=== PATIENT | male | born 1980 | race Caucasian/White ===

== ENCOUNTER 2016-08-19 09:02 | Emergency (ER) | payer OTHER ==
[2016-08-19 09:13] VITALS: TEMP 97.7
[2016-08-19] MEDS ORDERED: IBUPROFEN 600 MG TAB PO STA (09:31)
--- NOTE | 2016-08-19 09:36 | ED ---
General Adult HPI - General Chief complaint: Chest Pain Stated complaint: RT SIDE RIB PAIN Time Seen by Provider: 08/19/16 09:26 Source: patient, RN notes reviewed Mode of arrival: ambulatory Limitations: no limitations - History of Present Illness Initial comments: Patient 36-year-old male who presents emergency room today with a chief complaint of injury to the right anterior ribs. He does admit that 4 days ago he was playing softball. He states he was running to make a catch and he hit his anterior chest wall on a fence post. Patient states that he had some pain some discomfort locally to this area. He states that yesterday he was running a race called "[employer]". He states there are multiple popsicles. He states that by the end of his race he was really feeling the pain of the right anterior chest. He states very tender with certain movements and on palpation. He states he is worried about possible broken rib. He denies any other complaints or associated symptoms currently. States he is not taking any pain medication for this. Patient denies any recent fever, chills, shortness of breath, chest pain, back pain, abdominal pain, nausea or vomiting, numbness or tingling, dysuria or hematuria, constipation or diarrhea, headaches or visual changes, or any other complaints. - Related Data Previous Rx's Medication Instructions Recorded Ibuprofen [Motrin] 600 mg PO Q6HR PRN #30 day 08/19/16 Allergies Allergy/AdvReac Type Severity Reaction Status Date / Time No Known Allergies Allergy Verified 08/19/16 09:13 Review of Systems ROS Statement: Those systems with pertinent positive or pertinent negative responses have been documented in the HPI. ROS Other: All systems not noted in ROS Statement are negative. Past Medical History Past Medical History: No Reported History History of Any Multi-Drug Resistant Organisms: None Reported Past Surgical History: No Surgical Hx Reported Additional Past Surgical History / Comment(s): orchectomy Past Psychological History: No Psychological Hx Reported Smoking Status: Never smoker Past Alcohol Use History: None Reported Past Drug Use History: None Reported General Exam - General Exam Comments Initial Comments: General: The patient is awake and alert, in no distress, and does not appear acutely ill. Eye: Pupils are equal, round and reactive to light, extra-ocular movements are intact. No nystagmus. There is normal conjunctiva bilaterally. No signs of icterus. Ears, nose, mouth and throat: There are moist mucous membranes and no oral lesions. Neck: The neck is supple, there is no tenderness or JVD. Cardiovascular: There is a regular rate and rhythm. No murmur, rub or gallop is appreciated. Respiratory: Lungs are clear to auscultation, respirations are non-labored, breath sounds are equal. No wheezes, stridor, rales, or rhonchi. Musculoskeletal: Normal ROM. Patient has normal appearance of the chest wall with no obvious deformity. No bruising or swelling. He is tender to palpation from ribs 3-5. Strength 5/5. Sensation intact. Pulses equal bilaterally 2+. Neurological: A&O x 3. CN II-XII intact, There are no obvious motor or sensory deficits. Coordination appears grossly intact. Speech is normal. Skin: Skin is warm and dry and no rashes or lesions are noted. Psychiatric: Cooperative, appropriate mood & affect, normal judgment. Limitations: no limitations Course Vital Signs 08/19/16 09:09 Temperature 97.7 F Pulse Rate 80 Respiratory 18 Rate Blood Pressure 130/75 O2 Sat by Pulse 97 Oximetry Medical Decision Making - Medical Decision Making Patient's x-ray reviewed and shows no acute fracture dislocation. No other acute abnormalities. Results were discussed with patient. Advised most likely contusion. Advised to use ibuprofen for pain. Advised to return here to the emergency room symptoms increase or worsen or for any other concerns. Disposition Clinical Impression: Rib contusion Disposition: HOME SELF-CARE Condition: Good Instructions: Rib Contusion (ED) Additional Instructions: Please use medication as discussed. Please follow-up with family doctor in the next 2 days of symptoms have not improved. Please return to emergency room if the symptoms increase or worsen or for any other concerns. Prescriptions: Ibuprofen [Motrin] 600 mg PO Q6HR PRN #30 day PRN Reason: Pain Referrals: Shawn Walden MD [Primary Care Provider] - 1-2 days Time of Disposition: 10:37
--- NOTE | 2016-08-19 10:03 | XR ---
EXAMINATION TYPE: PA chest and right rib series DATE OF EXAM: 08/19/2016 COMPARISON: NONE HISTORY: 36-year-old male right mid anterior rib pain after injury. FINDINGS: Frontal view of the chest shows normal heart size, aorta, and prominent vasculature. Some strandy ate lectasis at the left base. No consolidation, pneumothorax, or pleural effusion. No displaced right rib fracture. IMPRESSION: No displaced right rib fracture or acute cardiopulmonary process.
[2016-08-19 10:49] VITALS: BP 128/82; PULSE 82; RESP 16
== END 2016-08-19 10:48 | disposition home or self-care (01) ==
LOC: EC 09:02
DX: S20.211A Contusion of right front wall of thorax, initial encounter (principal); W22.8XXA Striking against or struck by other objects, initial encounter; Y93.64 Activity, baseball
CPT/HCPCS: 99283